=== PATIENT | female | born 1980 | race Caucasian/White ===

== ENCOUNTER → 2018-03-18 09:07 | Outpatient (CLI) | payer BC, SELFPAY ==
--- NOTE | 2018-03-18 09:15 | US_ITS ---
STUDY: SECOND AND THIRD TRIMESTER OBSTETRICAL ULTRASOUND - LIMITED REASON FOR EXAM: Female, 37 years old. Bleeding. LMP: December 05, 2017. PRIOR ULTRASOUND: None. TECHNIQUE: Transabdominal ultrasound evaluation was performed. FINDINGS: There is a single intrauterine fetus. The fetus is in a variable presentation. There is demonstrated cardiac activity with a heart rate of 142 bpm. There is a normal amniotic fluid volume. The largest amniotic fluid pocket measures 7.5 cm x 2.4 cm. The amniotic fluid index (HAIM) is normal. The placenta is anterior in location and is not low lying. Marginal cord insertion noted at 1.1 cm from the edge of the placenta. There are Grade 0 placental changes. The cervix measures 3.2 cm in length. BIOMETRY: BPD: 3.07 cm: 15 weeks, 5 days HC: 11.5 cm: 15 weeks, 5 days AC: 9.6 cm: 15 weeks, 5 days FL: 1.65 cm: 15 weeks, 0 days Age by LMP: 14 weeks, 5 days. MAGNOLIA by LMP: September 11, 2018. age by current US: 15 weeks, 4 days. MAGNOLIA by current US: September 05, 2018. Estimated weight: 121 grams, +/- 18 grams, 80 percentile. Gender: Indeterminant US/OB Limited With Biometrics IMPRESSION: Single] intrauterine gestation with a mean gestational age of 15 weeks and 4 days. Marginal cord insertion at 1.1 cm from the edge of the placenta. Electronically Signed: Ger Mabry MD at 10:16 EDT Tel [phone], Service support ,
== END ==
PROVIDERS: Family Provider Family Medicine; PCP Family Medicine; Visit Provider Obstetrics & Gynecology
DX: O20.0 Threatened abortion (principal)
CPT/HCPCS: 76816

== ENCOUNTER → 2018-04-28 16:08 | Outpatient (CLI) | payer BC, SELFPAY ==
--- NOTE | 2018-04-28 16:13 | US_ITS ---
STUDY: SECOND AND THIRD TRIMESTER OBSTETRICAL ULTRASOUND REASON FOR EXAM: Female, 37 years old. 2nd trimester complete OB ultrasound. LMP: 12/06/2017. MAGNOLIA (LMP) 09/12/2018. GA (LMP) 20 week 3 day. TECHNIQUE: Transabdominal and transvaginal pelvic ultrasound. (Transvaginal imaging was performed for improved visualization of the cervix and placental tip, and amniotic fluid survey.) PRIOR ULTRASOUND: 03/18/2018 FINDINGS: There is a single live intrauterine gestation in cephalic presentation with cardiac rate 147 bpm. Amniotic fluid quantity is normal, deepest vertical pocket 6.7 cm. The cervical length is 3.8 cm, closed. The placenta is anterior, grade 1. Not low-lying. Marginal position of the umbilical cord, placental cord insertion approximately 1.8 cm from the margin of the placenta. A survey of the maternal adnexa reveals no mass, cyst or free fluid. The ovaries are not clearly characterized. There is no visible cul-de-sac free fluid. BIOMETRY: Measurement in centimeters. BPD: 5.1: 21 weeks, 4 days HC: 19.1: 21 weeks, 3 days AC: 17.2: 22 weeks, 1 days FL: 3.9: 22 weeks, 3 days CI: 79% FL/BPD: 75% FL/AC: 22% HC/AC: 1.11 age by current US: 22 weeks, 0 days. MAGNOLIA by current US: 09/01/2018. Estimated weight: 478 grams, +/- 70 grams, 98 %. age by prior US: 21 weeks, 3 days. MAGNOLIA by prior US: 09/05/2018. Age by LMP: 20 weeks, 3 days. MAGNOLIA by LMP: 09/12/2018. ANATOMY: Gender: Male Cranium: Normal lateral ventricles. Normal choroid plexus. Normal cerebellum. Normal cisterna magna. Normal face, nose and lips. Chest: Normal 4-chamber heart. Abdomen/Pelvis: Normal diaphragm. Normal stomach. Normal abdominal wall. Normal cord insertion. Normal 3 vessel cord. Normal kidneys. Normal bladder. Spine: Normal cervical spine. Normal thoracic spine. Normal lumbar spine. Normal sacrum. Extremities: Normal bilateral upper extremities. Normal bilateral lower extremities. US/OB Anatomy Scan IMPRESSION: The anatomic survey is satisfactory and reveals no anatomic abnormalities. Single live intrauterine gestation. Marginal placental cord insertion. Measurements on today's study are discordant with expected dates. growth 98 percentile. Electronically Signed: Ernie Cardenas, at 10:35 EDT Tel , Service support ,
== END ==
PROVIDERS: Family Provider Family Medicine; PCP Family Medicine; Referring Provider Obstetrics & Gynecology; Visit Provider Obstetrics & Gynecology
DX: Z36.89 Encounter for other specified antenatal screening (principal)
CPT/HCPCS: 76805